=== PATIENT | male | born 1970 | race American Indian/Alaskan Native ===

== ENCOUNTER 2017-09-25 11:10 | Emergency (ER) | payer BC ==
--- NOTE | 2017-09-25 12:50 | Emergency Department Report ---
ED Chest Pain HPI - General Chief Complaint: Chest Pain Stated Complaint: CHEST PAIN Time Seen by Provider: 09/25/17 12:42 Source: patient, EMS Mode of arrival: Stretcher Limitations: No Limitations - History of Present Illness Initial Comments: Patient said he was in a class when he suddenly started having left sided chest pain which radiated to his left upper extremity. He denies any shortness of breath or nausea associated with it. No diaphoresis. Patient denies abdominal pain or headache. MD Complaint: chest pain -: Sudden, This morning Onset: during rest Pain Location: left chest Pain Radiation: LUE Severity scale (0 -10): 7 Quality: tightness, squeezing Consistency: now resolved Improves With: nitroglycerin Worsens With: nothing re: denies: nausea, vomting, diaphoresis Other Symptoms: denies: cough Treatments Prior to Arrival: aspirin, nitroglycerin Aspirin use within the Past 7 Days: (0) No - Related Data On Oral Contraceptives: No Heart Score - HEART Score History: Moderately suspicious EKG: Normal Age: 45-65 Risk factors: 1-2 risk factors Troponin: < normal limit HEART Score: 3 - Critical Actions Critical Actions: 0-3 pts:0.9-1.7%risk of adverse cardiac event.Candidate for discharge ED Review of Systems ROS: Stated complaint: CHEST PAIN Other details as noted in HPI Comment: All other systems reviewed and negative Constitutional: denies: chills, fever Eyes: denies: eye pain ENT: denies: ear pain Respiratory: denies: cough, shortness of breath Cardiovascular: chest pain. denies: palpitations Endocrine: no symptoms reported Gastrointestinal: denies: abdominal pain, nausea, vomiting, diarrhea Genitourinary: denies: urgency, dysuria, frequency Musculoskeletal: denies: back pain, joint swelling Skin: denies: rash, lesions Neurological: denies: headache, weakness, numbness Psychiatric: denies: anxiety, depression Hematological/Lymphatic: denies: easy bleeding, easy bruising ED Physical Exam - General Limitations: No Limitations General appearance: alert, in no apparent distress - Head Head exam: Present: atraumatic, normocephalic, normal inspection - Eye Eye exam: Present: normal appearance, PERRL, EOMI Pupils: Present: normal accommodation - ENT ENT exam: Present: normal exam, normal orophraynx, mucous membranes moist - Neck Neck exam: Present: normal inspection, full ROM - Respiratory Respiratory exam: Present: normal lung sounds bilaterally. Absent: respiratory distress, wheezes, rales, rhonchi - Cardiovascular Cardiovascular Exam: Present: regular rate, normal rhythm, normal heart sounds - GI/Abdominal GI/Abdominal exam: Present: soft, normal bowel sounds. Absent: distended, tenderness, guarding, rebound - Extremities Exam Extremities exam: Present: normal inspection, full ROM, normal capillary refill - Back Exam Back exam: Present: normal inspection, full ROM - Neurological Exam Neurological exam: Present: alert, oriented X3, CN II-XII intact - Psychiatric Psychiatric exam: Present: normal affect. Absent: normal mood, depressed - Skin Skin exam: Present: warm, dry, intact, normal color ED Course Vital Signs 09/25/17 12:00 Temperature 97.9 F Pulse Rate 60 Respiratory 14 Rate Blood Pressure 123/71 O2 Sat by Pulse 99 Oximetry - Reevaluation(s) Reevaluation #1: 09/25/17 13:15 Patient refuses workup in the ED and said he wants to go home. He said he will follow-up with his doctor on Thursday. I tried to persuade him to stay in the emergency room and get the treatment he needed, but he still refused and said he doesn't want anything done and he wants to go home. Patient is alert and oriented 4 and he has a decision-making capacity. I explained to him the risk he was taking was includes severe medical disability or . He verbalized understanding the risks he is taking but however he still wants to go home. He signed and left AGAINST MEDICAL ADVICE. He is medically stable when he left the emergency room. I encouraged him to come back to the emergency room to get the medical treatment he needed including blood work with possible admission to the hospital whenever he changes his mind. He said he wants to go and see his doctor on Thursday and he doesn't want to stay. REY score - Rey Score Age > 65: (0) No Aspirin use within the Past 7 Days: (0) No 3 or more CAD Risk Factors: (0) No 2 or more Angina events in past 24 hrs: (0) No Known CAD with more than 50% Stenosis: (0) No ST Deviation Greater than 0.5mm: (0) No ED Medical Decision Making - EKG Data -: EKG Interpreted by Me EKG shows normal: sinus rhythm Rate: normal (63) - EKG Data When compared to previous EKG there are: previous EKG unavailable Interpretation: other (First degree AV block. No STEMI.) - Medical Decision Making Chest Pain. Critical care attestation.: If time is entered above; I have spent that time in minutes in the direct care of this critically ill patient, excluding procedure time. ED Disposition Clinical Impression: Chest pain Qualifiers: Chest pain type: unspecified Qualified Code(s): R07.9 - Chest pain, unspecified Disposition: DC-07 LEFT AGAINST MED ADVICE Is pt being admited?: No Does the pt Need Aspirin: Yes Condition: Stable Instructions: Chest Pain (ED) Time of Disposition: 13:22
[2017-09-25 13:22] VITALS: BP 123/71
== END 2017-09-25 13:00 | disposition left against medical advice (07) ==
LOC: ED 11:10
DX: R07.9 Chest pain, unspecified (principal)
CPT/HCPCS: 93005; 93010